=== PATIENT | male | born 1960 | race Caucasian/White ===

== ENCOUNTER 2017-01-17 13:07 | Emergency (ER) | payer BC ==
[2017-01-17 15:03] LABS: HEMOGLOBIN 13.5 gm/dl (14.0-17.5); RED BLOOD COUNT 4.65 M/UL (4.20-5.50); WHITE BLOOD COUNT 7.7 K/UL (4.5-11.0)
[2017-01-17 15:25] LABS: BUN/CREATININE RATIO 17 (0-10)
== END 2017-01-17 20:52 | disposition home or self-care (01) ==
LOC: ER1 13:07
PROVIDERS: Preventive Medicine Occupational Medicine
DX: R50.9 Fever, unspecified (principal); R11.2 Nausea with vomiting, unspecified; E86.0 Dehydration; E05.90 Thyrotoxicosis, unspecified without thyrotoxic crisis or storm
CPT/HCPCS: 36415; 71020; 80053; 81001; 82550; 83605; 83690; 83874; 84439; 84443; 85025; 85610; 85730; 86140; 86403; 87040; 87081; 87880; 96374; 96375; 99285; J0696; J2405; J7030; J7050

== ENCOUNTER → 2017-01-23 | Outpatient (CLI) | payer BC | LOC: KOH-I 09:35 | DX: J20.9 Acute bronchitis, unspecified (principal) | CPT/HCPCS: 71020 ==

== ENCOUNTER 2017-04-28 19:59 | Emergency (ER) | payer BC ==
[2017-04-28 20:55] LABS: HEMOGLOBIN 13.1 gm/dl (14.0-17.5); RED BLOOD COUNT 4.41 M/UL (4.20-5.50)
== END 2017-04-28 22:51 | disposition home or self-care (01) ==
LOC: ER1 19:59
PROVIDERS: Family Medicine
DX: N19 Unspecified kidney failure (principal); G56.00 Carpal tunnel syndrome, unspecified upper limb
CPT/HCPCS: 36415; 70450; 71020; 80053; 82550; 82553; 83036; 83874; 84484; 85025; 90715; 93005; 99284